=== PATIENT | male | born 1965 | race Caucasian/White ===

== ENCOUNTER 2020-01-14 18:10 | Emergency (ER) | payer OTHER ==
[2020-01-14 18:17] VITALS: BP 128/79; PULSE 59; TEMP 98.3; BMI 27.8
[2020-01-14] MEDS ORDERED: DIPHTH,PERTUSS(ACELL),TET 0.5 ML DISP.SYRIN IM ONE ×2 (18:50→18:55)
--- NOTE | 2020-01-14 18:53 | PDOC ---
History of Present Illness - General Chief Complaint: Injury Stated Complaint: L FOOT LACERATION Time Seen by Provider: 01/14/20 18:21 History Source: Patient Exam Limitations: No Limitations - History of Present Illness Initial Comments: 01/14/20 18:22 Patient is a 54-year-old male with no past medical history who presents to the ED with a left plantar foot laceration that he sustained just prior to arrival. He states a glass bottle was broken and on the ground and he accidentally stepped on it. The patient states he pulled a large piece of glass off of his foot but states he only stepped on a large shard of glass. He does not believe there is any glass in his foot. He is unsure of his last tetanus booster. He denies any allergies to medications. Past History - Medical History Allergies/Adverse Reactions: Allergies Allergy/AdvReac Type Severity Reaction Status Date / Time No Known Allergies Allergy Verified 01/14/20 18:17 Home Medications: Ambulatory Orders Cyclobenzaprine HCl [Flexeril -] 10 mg PO TID 08/14/17 Ibuprofen [Motrin -] 800 mg PO QID 08/14/17 Oxycodone HCl/Acetaminophen [Percocet 5-325 mg Tablet] 1 tab PO Q4H #7 tablet MDD 1 08/14/17 Oxycodone HCl/Acetaminophen [Percocet 5-325 mg Tablet] 1 - 2 tab PO Q6H PRN #8 tab MDD 4 08/15/17 COPD: No DVT: No - Psycho-Social/Smoking History Smoking History: Never smoked Have you smoked in the past 12 months: No - Substance Abuse Hx (Audit-C & DAST Scrn) How often the patient has a drink containing alcohol: Never Score: In Men: 4 or > Positive; In Women: 3 or > Positive: 0 Screen Result (Pos requires Nsg. Audit-10AR): Negative Review of Systems - Review of Systems Comments:: 01/14/20 19:54 - Review of Systems Able to Perform ROS?: Yes Constitutional: No: Fever, Chills, Loss of Appetite, Night Sweats, Weakness HEENTM: No: Eye Pain, Vision changes, Ear Pain, Throat Pain, Throat Swelling, Mouth Pain, Difficulty Swallowing Respiratory: No: Cough, Shortness of Breath, Wheezing, Sputum Production Cardiac (ROS): No: Chest Pain, Chest Tightness, Palpitations, Irregular Heart Beat, Edema ABD/GI: No: Nausea, Vomiting, Abdominal Pain, Diarrhea : No Dysuria, No Hematuria, No Frequency, No Urgency Musculoskeletal: No: Muscle Pain, Back Pain, Joint Pain, Muscle Weakness, Neck Pain Integumentary: No: Lesions, Rash; positive: Right plantar foot laceration Neurological: No: Headache, Numbness, Tingling, Weakness, Speech Difficulties *Physical Exam - Vital Signs Last Vital Signs Temp Pulse Resp BP Pulse Ox 98.3 F 59 L 18 128/79 99 01/14/20 18:15 01/14/20 18:15 01/14/20 18:15 01/14/20 18:15 01/14/20 18:15 - Physical Exam 01/14/20 19:55 - Physical Exam General Appearance: Nourished, Appropriately Dressed, No Distress HEENT: EOMI, Normal Voice, Hearing Grossly Normal Neck: Supple, No Lymphadenopathy (R), No Lymphadenopathy (L), No Rigidity, No Decreased range of motion Respiratory/Chest: Lungs Clear, Normal Breath Sounds. No Respiratory Distress, No Accessory Muscle Use Cardiovascular: Regular Rhythm, Regular Rate, S1, S2 Musculoskeletal: Normal Inspection. No Decreased Range of Motion Extremity: Normal Capillary Refill, Normal Inspection Integumentary: Normal Color, Dry. No Rash; 1 cm plantar left foot laceration with out gaping. The laceration is linear in nature. Mild active bleeding. No crepitus. The wound was extensively probed and no evidence of foreign body or glass appreciated. Neurologic: resort host II-XII NML intact, Fully Oriented, Alert, Normal Mood/Affect, Normal Response Procedures - Laceration/Wound Repair Left Plantar Foot Wound Length: to 2.5 cm Wound Explored: clean, no foreign body present Wound's Depth, Shape: superficial Irrigated w/ Saline: Yes Betadine Prep: Yes Anesthesia: 1% Lidocaine Amount of Anesthetic (ccs): 2 Wound Repaired With: Sutures Suture Size/Type: 4:0, nylon Number of Sutures: 3 Layer Closure: No Sterile Dressing Applied: Yes Splint Applied: No Progress: 01/14/20 18:49 Wound extensively probed for glass foreign body with none appreciated. Medical Decision Making - Medical Decision Making 01/14/20 18:50 Assessment: Patient is a 54-year-old male with a left foot laceration after stepping on glass. Plan: -Wound extensively probed and no glass foreign bodies appreciated -Suture repair performed -Boostrix given in the ED -Patient given wound care instructions and advised to return in 7 days for suture removal -He understands and agrees with this treatment plan and the patient stable for discharge Discharge - Discharge Information Problems reviewed: Yes Clinical Impression/Diagnosis: Laceration of foot, left Qualifiers: Encounter type: initial encounter Qualified Code(s): S91.312A - Laceration without foreign body, left foot, initial encounter Disposition: HOME - Follow up/Referral - Patient Discharge Instructions Patient Printed Discharge Instructions: DI for Laceration Repair Additional Instructions: Keep the wound clean and dry for 24 hours. After 24 hours you may remove the bandage and wash the wound once daily with warm water and soap. Allow the wound to dry completely, at least 30 minutes, before covering it. You can keep the wound uncovered while home but you should cover it while away from home. Return to the emergency department in 7 days to have the sutures removed. Mantenga la herida limpia y seca daniel 24 horas. Despus de 24 horas, puede quitarse el vendaje y rima la herida erick vez al da con agua tibia y jabn. Deje que la herida se seque por completo, al menos 30 minutos, antes de cubrirla. Puede mantener la herida descubierta mientras est en casa, rosalind debe cubrirla cuando est fuera de casa. Regrese al departamento de emergencias en [address] para que le quiten las suturas. Print Language: [id number] - Post Discharge Activity
== END 2020-01-14 19:08 | disposition home or self-care (01) ==
LOC: JERFT 18:10
PROC: 0HQNXZZ Repair Left Foot Skin, External Approach (ICD-10-PCS; principal; 2020-01-14)
PROC: 3E0234Z Introduction of Serum, Toxoid and Vaccine into Muscle, Percutaneous Approach (ICD-10-PCS; 2020-01-14)
DX: S61.312A Laceration without foreign body of right middle finger with damage to nail, initial encounter (principal)
CPT/HCPCS: 99284-25